=== PATIENT | male | born 2000 ===

== ENCOUNTER 2020-12-16 21:19 | Emergency (ER) | payer OTHER ==
[~2020-12-16] VITALS: Ht 170.2 cm; Wt 82.0 kg
[2020-12-16] MEDS ORDERED: IBUPROFEN 800 MG TABLET PO ONE (23:30)
[2020-12-16] MEDS ORDERED: ACETAMINOPHEN 500 MG TABLET PO ONE (23:30)
[2020-12-16 23:58] LABS: COVID AG,FIA SOURCE NASOPHARYNGEAL
[2020-12-17 00:22] LABS: INFLUENZA TYPE A NEGATIVE FOR TYPE A (NEGATIVE); INFLUENZA TYPE B NEGATIVE FOR TYPE B (NEGATIVE)
[2020-12-17 01:20] VITALS: BP 130/64
== END 2020-12-17 01:30 | disposition home or self-care (01) ==
LOC: EMS 21:22
DX: R51.9 Headache, unspecified (principal); R50.9 Fever, unspecified; Z20.822 Contact with and (suspected) exposure to COVID-19
CPT/HCPCS: 87426; 87804; 99283; U0003